=== PATIENT | male | born 1950 | race Caucasian/White ===

== ENCOUNTER 2019-02-26 08:56 | Day surgery (SDC) | payer MEDICARE, OTHER ==
[~2019-02-26 08:56] MED LIST: Lactated Ringers 1,000 ML IV SCH; Sodium Chloride 0.9% 10 ML Syringe FLUSH PRN
[2019-02-26] MEDS ORDERED: Propofol 200 MG/20 ML SDV ONE (11:17)
[2019-02-26] MEDS ORDERED: fentaNYL 100 MCG/2 ML SDV ONE (11:17)
--- NOTE | 2019-02-26 13:19 | OR ---
DATE OF SURGERY: 02/26/2019. REFERRING PROVIDER: JAIME Leach. PRE-OPERATIVE DIAGNOSES: History of colon polyps. Last colonoscopy was in 2013. The patient denies any current symptoms. POST-OPERATIVE DIAGNOSES: 1. 6 small polyps removed, all using cold forceps. a. 2 mm cecal polyp. b. 2 mm and 3 mm polyps at 70 cm. c. 2 mm at 60 cm. d. 2 mm and 3 mm polyps at 30 cm. 2. Mild left-sided diverticulosis. 3. Mild hemorrhoids, not acutely inflamed. 4. Normal-appearing distal ilium. PROCEDURE: Colonoscopy with polypectomy x6 using cold forceps. SURGEON: Robert Rod M.D. ANESTHESIA: Monitored anesthesia care. BOWEL PREP: Good. Varinder is a 68-year-old male who was brought to the endoscopy suite after discussing risks and benefits of the procedure. Informed consent was obtained for conscious sedation and colonoscopy with or without biopsy and/or polypectomy. We also discussed possibility of missed lesions. Pre-procedure exam was unremarkable. IV, oxygen, and monitors were placed. The patient was placed in the left lateral decubitus position. Sedation was administered and a digital rectal exam was performed and unremarkable except for some mild hemorrhoids. Colonoscope was passed into the rectum and slowly advanced all the way to the cecum. Cecum was viewed and photographed. There was a 2 mm cecal polyp, which was removed using cold forceps. The ileocecal valve was intubated and distal ileum was normal in appearance. The colonoscope was slowly withdrawn and the mucosa was closed observed in a direct circumferential manner. The ascending colon was remarkable for 2 mm and 3 mm polyps at around 70 cm and another 2 mm polyp at 60 cm, all removed using cold forceps. The transverse colon was unremarkable. The descending colon and sigmoid colon did reveal some mild diverticulosis. There was also a 2 mm and 3 mm polyps at 30 cm, both removed using cold forceps. Retroflexion was performed and rectal mucosa was remarkable for some mild internal hemorrhoids, not acutely inflamed. Scope was removed. The patient tolerated the procedure well. The patient was monitored until that baseline status. Discharge instructions were reviewed and the patient was discharged in good condition. COMPLICATIONS: None. TOTAL TIME: 20 minutes. ESTIMATED BLOOD LOSS: About 1 mL. RECOMMENDATIONS/FOLLOW-UP: We will await results of path report to determine ideal followup interval. I would like to kindly thank Fitz Ortega for this referral. DMB: 02/26/2019 12:52:25 MODL: 02/26/2019 13:12:47 /[id number]
== END 2019-02-26 13:55 | disposition home or self-care (01) ==
LOC: VM.SDS 08:56
PROVIDERS: ATTEND Family Medicine
DX: Z12.11 Encounter for screening for malignant neoplasm of colon (principal); D12.4 Benign neoplasm of descending colon; D12.5 Benign neoplasm of sigmoid colon; K63.5 Polyp of colon; K57.30 Diverticulosis of large intestine without perforation or abscess without bleeding; K64.8 Other hemorrhoids; E78.00 Pure hypercholesterolemia, unspecified; J45.30 Mild persistent asthma, uncomplicated; Z86.010 Personal history of colon polyps; Z79.52 Long term (current) use of systemic steroids; Z79.899 Other long term (current) drug therapy
CPT/HCPCS: 45380; 88305; J2704; J3010; J7120

== ENCOUNTER 2021-03-10 08:32 | Emergency (ER) | payer MEDICARE, OTHER ==
--- NOTE | 2021-03-10 09:03 | EDM.PDOC ---
ED HPI GENERAL MEDICAL PROBLEM - General Chief Complaint: Chest Pain Stated Complaint: CHEST PAIN Time Seen by Provider: 03/10/21 08:45 Source of Information: Reports: Patient History Limitations: Reports: No Limitations - History of Present Illness INITIAL COMMENTS - FREE TEXT/NARRATIVE: Patient comes in emergency department complaints of sided upper chest discomfort with deep breaths. Patient denies any shortness of breath or chest discomfort that does not go away. He states it is only when he takes a deep breath he is got her up shooting pain on the right side it does not radiate up to the neck. It does not cause any diaphoresis. He states that it has been the same since last evening. He states that he has been working in the yard a little bit more. Patient denies any headache, dizziness, fever, nausea or vomiting. Onset: Gradual Duration: Other Location: Reports: Other Quality: Reports: Sharp Severity: Mild Improves with: Reports: Movement, Rest Worsens with: Reports: Breathing Associated Symptoms: Reports: No Other Symptoms - Related Data Allergies Allergy/AdvReac Type Severity Reaction Status Date / Time No Known Allergies Allergy Verified 02/26/19 09:30 Home Meds: Home Meds Fluticasone/Salmeterol [Advair 250-50 Diskus] 1 puff INH DAILY 02/03/14 [History] Hydrocortisone [Hydrocortisone 1% Crm] 28.4 gm TOP ASDIRECTED 02/03/14 [History] Albuterol [Proventil HFA] 2 inhalation INH Q4HR PRN 02/23/19 [History] Fluticasone Propionate [Flonase] 1 inhalation IN BID 02/23/19 [History] Loratadine/Pseudoephedrine [Claritin-D 12 Hour] 1 tab PO Q12HR PRN 02/23/19 [History] Azithromycin 500 mg PO DAILY #5 tablet 03/10/21 [Rx] Past Medical History HEENT History: Reports: Other (See Below) Other HEENT History: HYPERMETROPIA; PRESBYOPIA Cardiovascular History: Reports: High Cholesterol Respiratory History: Reports: Asthma, Other (See Below) Other Respiratory History: ALLERGIC RHINITIS Dermatologic History: Reports: Other (See Below) Other Dermatologic History: DERMATITIS - Past Surgical History GI Surgical History: Reports: Colonoscopy Other Female Surgeries/Procedures: ERECTILE DYSFUNCTION Male Surgical History: Reports: Other (See Below) ED ROS GENERAL - Review of Systems Review Of Systems: See Below Constitutional: Reports: No Symptoms HEENT: Reports: No Symptoms Respiratory: Reports: Pleuritic Chest Pain Cardiovascular: Reports: No Symptoms Endocrine: Reports: No Symptoms GI/Abdominal: Reports: No Symptoms : Reports: No Symptoms Musculoskeletal: Reports: No Symptoms Skin: Reports: No Symptoms Neurological: Reports: No Symptoms Psychiatric: Reports: No Symptoms Hematologic/Lymphatic: Reports: No Symptoms Immunologic: Reports: No Symptoms ED EXAM, GENERAL - Physical Exam Exam: See Below Exam Limited By: No Limitations General Appearance: Alert, WD/WN, No Apparent Distress Nose: Normal Inspection, Normal Mucosa Throat/Mouth: Normal Inspection, Normal Lips, Normal Teeth, Normal Voice, No Airway Compromise Head: Atraumatic, Normocephalic Neck: Normal Inspection, Supple, Non-Tender, Full Range of Motion Respiratory/Chest: No Respiratory Distress, Lungs Clear, Normal Breath Sounds, No Accessory Muscle Use, Chest Non-Tender Cardiovascular: Normal Peripheral Pulses, Regular Rate, Rhythm, No Edema, No Murmur Back Exam: Normal Inspection, Full Range of Motion Extremities: Normal Inspection, Normal Range of Motion, Non-Tender, Normal Capillary Refill Neurological: Alert, Oriented, Normal Cognition, Normal Gait Psychiatric: Normal Affect, Normal Mood Skin Exam: Warm, Dry, Intact, Normal Color #1 Interpretation EKG Date: 03/10/21 Rhythm: NSR [place]: Normal P-Wave: Present QRS: Normal ST-T: Normal QT: Normal Comparison: NA - No Prior EKG Course - Orders/Labs/Meds Orders: Active Orders 24 hr Category Date Time Status Chest 2V [CR] Stat Exams 03/10/21 08:47 Ordered Departure - Departure Time of Disposition: 09:30 Disposition: Home, Self-Care 01 Condition: Good Clinical Impression: Pleurisy, Infiltrate of lung present on chest x-ray - Discharge Information *PRESCRIPTION DRUG MONITORING PROGRAM REVIEWED*: Not Applicable *COPY OF PRESCRIPTION DRUG MONITORING REPORT IN PATIENT LUZ: Not Applicable Instructions: Pleurisy, [id number], Azithromycin tablets Forms: ED Department Discharge Additional Instructions: 1. rest 2. increase your water intake 3. Take all antibiotics as prescribed even if feeling better 4. Take a probiotic while on antibiotics to help promote healthy GI motility 5. Activity and diet as tolerated 6. Can use Ibuprofen and tylenol for any fever or discomfort 7. Follow up with your PCP or return if symptoms progress or worsen 8. Education provided to you regarding your illness, probiotics, antibiotic prescribed 9. Call with any questions or concerns - My Orders Last 24 Hours: My Active Orders 03/10/21 08:47 Chest 2V [CR] Stat - Assessment/Plan Last 24 Hours: My Active Orders 03/10/21 08:47 Chest 2V [CR] Stat Assessment:: 1. Pleuritic chest pain 2. Bronchitis 3. infiltrates right lung Plan: 1. Chest xray completed in ER. results reviewed with the pt. 2. EKG completed in ER. Results reviewed with the pt 3. Patient and nursing staff was updated regarding the plan of care 4. Education provided the patient regarding activity, diet, rest, [id number] medication modalities, and follow-up care was provided 5. Patient and family are agreeable to the above plan of care 6. All questions and concerns were addressed with the patient and family prior to discharge
[2021-03-10] MEDS ORDERED: Ibuprofen 200 MG Tab PO STA (09:22)
--- NOTE | 2021-03-10 09:25 | CR ---
[id number] RAD/RAD Chest PA And Lateral EXAM: RAD Chest PA And Lateral INDICATION: CHEST PAIN. COMPARISON: None. DISCUSSION: Cardiomediastinal silhouette is normal in size and contour. Right basilar pulmonary infiltrate. No pneumothorax or pleural effusion. Pulmonary hyperinflation. IMPRESSION: Right basilar pulmonary infiltrate. Chicho Vasques DO 03/10/21 0923 Thank you for allowing us to participate in the care of your patient.
== END 2021-03-10 09:45 | disposition home or self-care (01) ==
LOC: VM.ED 08:32
DX: R09.1 Pleurisy (principal); R93.1 Abnormal findings on diagnostic imaging of heart and coronary circulation
CPT/HCPCS: 71046; 93005; 93010; 99284; 99285-25; A9270-GY

== ENCOUNTER 2024-12-04 08:33 | Day surgery (SDC) | payer MEDICARE, OTHER ==
[2024-12-04] MEDS: Lactated Ringers 1,000 ML IV SCH (08:50)
[2024-12-04] MEDS ORDERED: Midazolam 1 MG/ML 2 ML SDV ONE (09:34)
[2024-12-04] MEDS ORDERED: fentaNYL 100 MCG/2 ML SDV ONE (09:34)
[2024-12-04] MEDS ORDERED: Propofol 200 MG/20 ML SDV ONE (09:34)
[2024-12-04 10:35] VITALS: BP 111/55; PULSE 64
[2024-12-04] MEDS ORDERED: Sodium Chloride 0.9% 10 ML Syringe FLUSH PRN (14:59)
== END 2024-12-04 11:18 | disposition home or self-care (01) ==
LOC: VM.SDS 08:33
PROVIDERS: ATTEND Student in an Organized Health Care Education/Training Program
DX: Z12.11 Encounter for screening for malignant neoplasm of colon (principal); D12.2 Benign neoplasm of ascending colon; D12.8 Benign neoplasm of rectum; K63.5 Polyp of colon; Z86.0100 Personal history of colon polyps, unspecified; E78.00 Pure hypercholesterolemia, unspecified; J45.50 Severe persistent asthma, uncomplicated; Z79.899 Other long term (current) drug therapy; Z91.048 Other nonmedicinal substance allergy status; Z88.1 Allergy status to other antibiotic agents
CPT/HCPCS: 00811; 88305; 99100; J2250; J2704; J3010; J7120

== ENCOUNTER 2025-03-12 14:11 | Emergency (ER) | payer MEDICARE, OTHER ==
[2025-03-12] MEDS: Iopamidol 755 Mg/ML 100 ML Bottle IVPUSH ONE (14:59)
== END 2025-03-12 16:44 | disposition home or self-care (01) ==
LOC: VM.ED 14:11
DX: R05.1 Acute cough (principal); R79.89 Other specified abnormal findings of blood chemistry; Z88.1 Allergy status to other antibiotic agents; Z79.51 Long term (current) use of inhaled steroids; Z79.899 Other long term (current) drug therapy
CPT/HCPCS: 36415; 71275; 83605; 99285; A9270; Q9967; 99282